=== PATIENT | male | born 1930 | race Caucasian/White ===

== ENCOUNTER 2016-09-11 10:29 | Outpatient (CLI) | payer MEDICARE | END 2016-09-11 10:30 | disposition home or self-care (01) | DX: I48.91 Unspecified atrial fibrillation (principal); N18.3 Chronic kidney disease, stage 3 (moderate); E11.65 Type 2 diabetes mellitus with hyperglycemia; Z79.01 Long term (current) use of anticoagulants ==

== ENCOUNTER 2016-10-25 10:40 | Outpatient (CLI) | payer MEDICARE | END 2016-10-25 10:41 | disposition home or self-care (01) | DX: I48.1 Persistent atrial fibrillation (principal); Z79.01 Long term (current) use of anticoagulants ==

== ENCOUNTER 2016-11-27 13:05 | Outpatient (CLI) | payer MEDICARE | END 2016-11-27 13:06 | disposition home or self-care (01) | DX: E11.65 Type 2 diabetes mellitus with hyperglycemia (principal); I48.1 Persistent atrial fibrillation; Z79.01 Long term (current) use of anticoagulants ==

== ENCOUNTER 2017-01-14 07:29 | Outpatient (CLI) | payer MEDICARE ==
[2017-01-14 11:10] LABS: ALBUMIN/GLOBULIN RATIO 1.6 (1.0-2.2); BILIRUBIN,TOTAL 0.9 mg/dL (0.2-1.0); BUN - BLOOD UREA NITROGEN 33 mg/dL (6-20); CALCIUM 8.8 mg/dL (8.5-10.3); CARBON DIOXIDE - CO2 30 mmol/L (21-32); CHLORIDE 105 mmol/L (101-111); CHOL/HDL RATIO 3.5 (<5.0); CHOLESTEROL 141 mg/dL; CREATININE 1.7 mg/dL (0.6-1.2); GFR - MDRD 38 (>89); GLUCOSE 141 mg/dL (70-100); HDL CHOLESTEROL 40 mg/dL; LDL CHOLESTEROL,DIRECT 78 mg/dL; SODIUM 141 mmol/L (135-145); TOTAL PROTEIN 6.7 g/dL (6.7-8.2); TRIGLYCERIDES 102 mg/dL; VLDL CHOLESTEROL 20 mg/dL
== END 2017-01-14 07:30 | disposition home or self-care (01) ==
LOC: LAB.F 07:29
PROVIDERS: ATTEND Internal Medicine Cardiovascular Disease
DX: I50.22 Chronic systolic (congestive) heart failure (principal); I10 Essential (primary) hypertension; I48.2 Chronic atrial fibrillation
CPT/HCPCS: 36415; 80053; 80061; 80162; 83880

== ENCOUNTER 2017-01-20 10:23 | Outpatient (CLI) | payer MEDICARE | END 2017-01-20 10:24 | disposition home or self-care (01) | LOC: LAB.F 10:23 | PROVIDERS: ATTEND Internal Medicine | DX: I48.1 Persistent atrial fibrillation (principal); Z79.01 Long term (current) use of anticoagulants | CPT/HCPCS: 85610 ==

== ENCOUNTER 2017-02-26 07:55 | Outpatient (CLI) | payer MEDICARE ==
[2017-02-26 12:06] LABS: CALCIUM 8.6 mg/dL (8.5-10.3); CREATININE 1.5 mg/dL (0.6-1.2); POTASSIUM 4.1 mmol/L (3.5-5.0)
[2017-02-26 12:31] LABS: HEMOGLOBIN A1C 0.87 g/dL
== END 2017-02-26 07:56 | disposition home or self-care (01) ==
LOC: LAB.F 07:55
PROVIDERS: ATTEND Internal Medicine
DX: Z00.00 Encounter for general adult medical examination without abnormal findings (principal); I50.23 Acute on chronic systolic (congestive) heart failure; N18.3 Chronic kidney disease, stage 3 (moderate); E78.5 Hyperlipidemia, unspecified; E11.65 Type 2 diabetes mellitus with hyperglycemia
CPT/HCPCS: 36415; 80048; 82043; 82570; 83036

== ENCOUNTER 2017-02-28 13:24 | Outpatient (CLI) | payer MEDICARE | END 2017-02-28 13:25 | disposition home or self-care (01) | LOC: LAB.F 13:24 | PROVIDERS: ATTEND Internal Medicine | DX: I48.1 Persistent atrial fibrillation (principal); Z79.01 Long term (current) use of anticoagulants | CPT/HCPCS: 85610 ==

== ENCOUNTER 2017-03-18 13:05 | Outpatient (CLI) | payer MEDICARE | END 2017-03-18 13:06 | disposition home or self-care (01) | LOC: SC 13:05 | PROVIDERS: ATTEND Internal Medicine Pulmonary Disease | DX: G47.31 Primary central sleep apnea (principal) | CPT/HCPCS: 99213; G0463; 99212 ==

== ENCOUNTER 2017-04-10 07:43 | Outpatient (CLI) | payer MEDICARE ==
[2017-04-10 12:58] LABS: HEMOGLOBIN A1C 0.89 g/dL
== END 2017-04-10 07:44 | disposition home or self-care (01) ==
LOC: LAB.F 07:43
PROVIDERS: ATTEND Internal Medicine
DX: E11.65 Type 2 diabetes mellitus with hyperglycemia (principal); I48.1 Persistent atrial fibrillation; Z79.01 Long term (current) use of anticoagulants
CPT/HCPCS: 36415; 83036; 85610

== ENCOUNTER 2017-05-22 10:28 | Outpatient (CLI) | payer MEDICARE ==
[2017-05-22 18:48] LABS: HEMOGLOBIN A1C 0.9 g/dL
== END 2017-05-22 10:29 | disposition home or self-care (01) ==
LOC: LAB.F 10:28
PROVIDERS: ATTEND Internal Medicine
DX: I48.1 Persistent atrial fibrillation (principal); Z79.01 Long term (current) use of anticoagulants; E11.65 Type 2 diabetes mellitus with hyperglycemia
CPT/HCPCS: 83036; 85610

== ENCOUNTER 2017-07-09 07:50 | Outpatient (CLI) | payer MEDICARE ==
[2017-07-09 11:03] LABS: INR 3.3 (0.8-1.2); PT - PROTHROMBIN TIME 35.2 secs (9.9-12.6)
[2017-07-09 11:21] LABS: HEMOGLOBIN A1C 0.86 g/dL
== END 2017-07-09 07:51 | disposition home or self-care (01) ==
LOC: LAB.F 07:50
PROVIDERS: ATTEND Internal Medicine
DX: I50.23 Acute on chronic systolic (congestive) heart failure (principal); I48.91 Unspecified atrial fibrillation; G47.37 Central sleep apnea in conditions classified elsewhere; N18.3 Chronic kidney disease, stage 3 (moderate); E78.5 Hyperlipidemia, unspecified; I06.0 Rheumatic aortic stenosis; N25.81 Secondary hyperparathyroidism of renal origin; E11.65 Type 2 diabetes mellitus with hyperglycemia; I12.9 Hypertensive chronic kidney disease with stage 1 through stage 4 chronic kidney disease, or unspecified chronic kidney disease
CPT/HCPCS: 36415; 83036; 85610

== ENCOUNTER 2017-08-06 07:46 | Outpatient (CLI) | payer MEDICARE ==
[2017-08-06 13:49] LABS: ALBUMIN/GLOBULIN RATIO 1.3 (1.0-2.2); BILIRUBIN,TOTAL 0.7 mg/dL (0.2-1.0); BUN - BLOOD UREA NITROGEN 29 mg/dL (6-20); CALCIUM 8.7 mg/dL (8.5-10.3); CARBON DIOXIDE - CO2 30 mmol/L (21-32); CHLORIDE 101 mmol/L (101-111); CHOL/HDL RATIO 3.6 (<5.0); CHOLESTEROL 142 mg/dL; CREATININE 1.6 mg/dL (0.6-1.2); GFR - MDRD 41 (>89); GLUCOSE 126 mg/dL (70-100); HDL CHOLESTEROL 39 mg/dL; LDL CHOLESTEROL,DIRECT 89 mg/dL; LDL/HDL RATIO 2.2 (<3.6); POTASSIUM 3.9 mmol/L (3.5-5.0); SODIUM 140 mmol/L (135-145); TOTAL PROTEIN 6.9 g/dL (6.7-8.2); TRIGLYCERIDES 90 mg/dL; VLDL CHOLESTEROL 18 mg/dL
== END 2017-08-06 07:47 | disposition home or self-care (01) ==
LOC: LAB.F 07:46
PROVIDERS: ATTEND Internal Medicine Cardiovascular Disease
DX: I42.8 Other cardiomyopathies (principal); I35.9 Nonrheumatic aortic valve disorder, unspecified; E78.5 Hyperlipidemia, unspecified
CPT/HCPCS: 36415; 80053; 80061; 82550

== ENCOUNTER 2017-08-27 08:23 | Outpatient (CLI) | payer MEDICARE ==
[2017-08-27 12:06] LABS: HEMOGLOBIN A1C 0.76 g/dL; HEMOGLOBIN A1C % 6.8 % (4.6-6.2)
== END 2017-08-27 08:24 | disposition home or self-care (01) ==
LOC: LAB.F 08:23
PROVIDERS: ATTEND Internal Medicine
DX: I50.23 Acute on chronic systolic (congestive) heart failure (principal); I48.91 Unspecified atrial fibrillation; G47.37 Central sleep apnea in conditions classified elsewhere; N18.3 Chronic kidney disease, stage 3 (moderate); I06.0 Rheumatic aortic stenosis; N25.81 Secondary hyperparathyroidism of renal origin; I12.9 Hypertensive chronic kidney disease with stage 1 through stage 4 chronic kidney disease, or unspecified chronic kidney disease; I48.1 Persistent atrial fibrillation; Z79.01 Long term (current) use of anticoagulants
CPT/HCPCS: 36415; 83036; 85610

== ENCOUNTER 2017-09-09 19:02 | Outpatient (CLI) | payer MEDICARE | END 2017-09-09 19:03 | disposition EMS.NT | LOC: EMS 19:02 | PROVIDERS: ATTEND Surgery | DX: R05 Cough (principal) ==

== ENCOUNTER 2017-09-09 20:19 | Emergency (ER) | payer MEDICARE ==
--- NOTE | 2017-09-09 21:48 | XRAY Report ---
EXAM: CHEST RADIOGRAPHY EXAM DATE: 09/09/2017 09:20 PM. CLINICAL HISTORY: Persistent cough. COMPARISON: 09/09/2014. TECHNIQUE: 2 views. FINDINGS: Lungs/Pleura: Stable minor left base scarring, otherwise no focal opacities evident. No pleural effus ion. No pneumothorax. Normal volumes. Mediastinum: Normal heart size. Prior cardiac valve replacement. Stable dual lead left ICD. Other: No compression fractures. IMPRESSION: Stable left base scarring. No acute pulmonary abnormality. [facility] Referring Provider Line: [phone] SITE ID: [id number]
--- NOTE | 2017-09-09 21:48 | XRAY Preliminary Report ---
Exam: XR CHEST 2 VIEW X-RAY IMPRESSION: Stable left base scarring. No acute pulmonary abnormality. [facility] SITE ID: [id number]
[2017-09-09] MEDS ORDERED: BENZONATATE 100 MG CAPSULE PO STA (21:58)
--- NOTE | 2017-09-09 22:01 | ED Physician Documentation ---
PD HPI URI - Stated complaint Stated Complaint: COUGH - Chief complaint Chief Complaint: Resp - History obtained from History obtained from: Patient - History of Present Illness Timing - onset: Yesterday Timing details: Gradual onset, Still present Associated symptoms: No: Fever, Chills Similar symptoms before: Has not had sx before Recently seen: Not recently seen - Additional information Additional information: Patient is an 87 year old male presenting to the emergency department for cough. Patient states that he has had a dry cough for the last few days. patient denies fevers, chills, wheezing, chest pain, nausea or vomiting. Patient states that he blood pressure medication did get recently changed to lisinopril. Review of Systems Constitutional: denies: Fever, Chills Eyes: reports: Reviewed and negative Ears: reports: Reviewed and negative Nose: denies: Rhinorrhea / runny nose, Congestion Cardiac: denies: Chest pain / pressure, Palpitations Respiratory: reports: Cough. denies: Dyspnea, Hemoptysis, Wheezing GI: denies: Nausea, Vomiting : reports: Reviewed and negative Skin: denies: Rash, Lesions Musculoskeletal: reports: Reviewed and negative Neurologic: denies: Generalized weakness, Focal weakness Immunocompromised: denies: Immunocompromised PD PAST MEDICAL HISTORY - Past Medical History Cardiovascular: Congestive heart failure, Hypertension, Coronary artery disease , Atrial fibrillation, Valve disorder Respiratory: Sleep apnea, CPAP use Neuro: None Endocrine/Autoimmune: Type 2 diabetes, Other GI: None : Renal insuffiency HEENT: None Psych: Depression Musculoskeletal: Osteoarthritis Derm: None - Past Surgical History Past Surgical History: Yes General: Appendectomy Cardiovascular: Valve replacement, Pacemaker, AICD HEENT: Tonsil/Adenoidectomy - Present Medications Home Medications: Ambulatory Orders Medication Instructions Recorded Confirmed Doxazosin [Cardura] 2 mg PO DAILY 04/30/13 05/16/16 Metoprolol Succinate 200 mg PO DAILY@0900 04/30/13 05/16/16 Pravastatin Sodium [Pravachol] 80 mg PO QPM 04/30/13 05/16/16 Warfarin Sodium [Coumadin] 5 mg PO .SUTUWETHSA@1800 04/30/13 05/16/16 Allopurinol 100 mg PO DAILY 02/21/14 05/16/16 Digoxin [Digox] 125 mcg PO DAILY 02/21/14 05/16/16 Lisinopril 40 mg PO DAILY 08/09/15 05/16/16 Cholecalciferol (Vitamin D3) 1,000 unit PO DAILY 12/22/15 05/16/16 [Vitamin D3] Furosemide 20 mg PO BID 12/22/15 05/16/16 Metoprolol Succinate 100 mg PO QPM 12/22/15 05/16/16 Warfarin Sodium 2.5 mg PO .MOFR@1800 12/22/15 05/16/16 Insulin NPH Human Isophane 14 unit SQ BID 01/05/16 05/16/16 [Humulin N Kwikpen] Benzonatate [Tessalon] 100 mg PO TID #14 capsule 09/09/17 - Allergies Allergies/Adverse Reactions: Allergies Allergy/AdvReac Type Severity Reaction Status Date / Time morphine Allergy Unknown Unknown Verified 12/22/15 10:11 - Social History Does the pt smoke?: No Smoking Status: Never smoker Does the pt drink ETOH?: No Does the pt have substance abuse?: No - Immunizations Immunizations are current?: Yes - POLST Patient has POLST: Yes PD ED PE NORMAL - Vitals Vital signs reviewed: Yes - General General: Alert and oriented X 3, No acute distress - HEENT HEENT: Atraumatic, PERRL - Neck Neck: Supple, no meningeal sign - Cardiac Cardiac: RRR, No murmur - Respiratory Respiratory: No respiratory distress, Clear bilaterally - Abdomen Abdomen: Soft, Non tender, Non distended - Derm Derm: Normal color, Warm and dry, No rash - Extremities Extremities: No deformity, No tenderness to palpate - Neuro Neuro: Alert and oriented X 3, No motor deficit, No sensory deficit, Normal speech - Psych Psych: Normal mood Results - Vitals Vitals: Vital Signs - 24 hr 09/09/17 09/09/17 20:32 22:06 Temperature 36.1 C L 36.5 C Heart Rate 80 76 Respiratory 18 18 Rate Blood Pressure 134/57 H 126/70 O2 Saturation 97 97 Oxygen O2 Source [With Activity] Room air O2 Source [Without Activity] Room air O2 Source Room air - Labs Labs: Laboratory Tests 09/09/17 21:06 Influenza A (Rapid) Negative Influenza B (Rapid) Negative Influenza Types A,B Ag - - Rads (name of study) chest x-ray Radiology: Final report received (no acute abnormality) PD MEDICAL DECISION MAKING - ED course Complexity details: reviewed old records, reviewed results, re-evaluated patient , considered differential, d/w patient ED course: Patient was seen and examined at bedside. Patietn was well appearing and no acute distress. chest x-ray and flu swab was performed and within normal limits. Patient's symptoms were likely secondary to lisinopril. Patient stated that he would be able to follow up with his doctor tomorrow. Patient required no further work up and was stable for discharge with outpatient follow up. Departure - Departure Disposition: Home, Self Care Clinical Impression: Cough due to RITCHIE inhibitor Condition: Good Instructions: Inhibitors RITCHIE Follow-Up: Evangelist Carrillo MD [Primary Care Provider] - Tomorrow Prescriptions: Benzonatate [Tessalon] 100 mg PO TID #14 capsule Comments: Your diagnostics today were within normal limits. There is no sign of influenza or pneumonia. Your symptoms are likely secondary to your blood pressure medication, lisinopril. You should call your doctor tomorrow to schedule a follow up appointment. You may return to the emergency department at any time for new, worsening or uncontrollable symptoms. Discharge Date/Time: 09/09/17 22:08
[2017-09-09 22:07] VITALS: BP 126/70
== END 2017-09-09 22:08 | disposition home or self-care (01) ==
LOC: ED 20:19
DX: R05 Cough (principal); T46.4X5A Adverse effect of angiotensin-converting-enzyme inhibitors, initial encounter; I11.0 Hypertensive heart disease with heart failure; I50.9 Heart failure, unspecified; I25.10 Atherosclerotic heart disease of native coronary artery without angina pectoris; E11.9 Type 2 diabetes mellitus without complications; Z79.4 Long term (current) use of insulin; Z95.810 Presence of automatic (implantable) cardiac defibrillator; Z95.2 Presence of prosthetic heart valve; Z79.01 Long term (current) use of anticoagulants
CPT/HCPCS: 71046; 87275; 87276; 99283; 99284; A9270

== ENCOUNTER 2017-09-15 10:00 | Outpatient (CLI) | payer MEDICARE | END 2017-09-15 10:01 | disposition critical access hospital (66) | LOC: EMS 10:00 | PROVIDERS: ATTEND Surgery | DX: R31.9 Hematuria, unspecified (principal); R30.9 Painful micturition, unspecified | CPT/HCPCS: A0425; A0429 ==

== ENCOUNTER 2017-09-15 10:30 | Emergency (ER) | payer MEDICARE ==
--- NOTE | 2017-09-15 10:45 | ED Physician Documentation ---
History of Present Illness - Stated complaint Stated Complaint: HEMATURIA - Chief complaint Chief Complaint: General - Additonal information Additional information: hx from pt 87 male 3 days of dysuria now hematuria and L flank pain no pain no fever chills no NV Review of Systems Constitutional: denies: Fever, Chills Cardiac: denies: Chest pain / pressure Respiratory: denies: Dyspnea, Cough GI: denies: Abdominal Pain, Nausea, Vomiting : reports: Dysuria, Hematuria Musculoskeletal: reports: Back pain Endocrine: denies: Easy bruising / bleeding Immunocompromised: denies: Immunocompromised PD PAST MEDICAL HISTORY - Past Medical History Cardiovascular: Congestive heart failure, Hypertension, Coronary artery disease , Atrial fibrillation, Valve disorder Respiratory: Sleep apnea, CPAP use Neuro: None Endocrine/Autoimmune: Type 2 diabetes, Other GI: None : Renal insuffiency HEENT: None Psych: Depression Musculoskeletal: Osteoarthritis Derm: None - Past Surgical History Past Surgical History: Yes General: Appendectomy Cardiovascular: Valve replacement, Pacemaker, AICD HEENT: Tonsil/Adenoidectomy - Present Medications Home Medications: Ambulatory Orders Medication Instructions Recorded Confirmed Doxazosin [Cardura] 2 mg PO DAILY 04/30/13 09/15/17 Metoprolol Succinate 0 mg PO DAILY@0900 04/30/13 09/15/17 Pravastatin Sodium [Pravachol] 80 mg PO QPM 04/30/13 09/15/17 Warfarin Sodium [Coumadin] 5 mg PO .SUTUTHSA@1800 04/30/13 09/15/17 Allopurinol 100 mg PO DAILY 02/21/14 09/15/17 Digoxin [Digox] 125 mcg PO DAILY 02/21/14 09/15/17 Cholecalciferol (Vitamin D3) 1,000 unit PO DAILY 12/22/15 09/15/17 [Vitamin D3] Furosemide 20 mg PO BID 12/22/15 09/15/17 Metoprolol Succinate 0 mg PO QPM 12/22/15 09/15/17 Warfarin Sodium 2.5 mg PO .MOALOKFR@1800 12/22/15 09/15/17 Insulin NPH Human Isophane 22 unit SQ BID 01/05/16 09/15/17 [Humulin N Kwikpen] Lisinopril/Hydrochlorothiazide 0 mg DAILY 09/15/17 09/15/17 [Lisinopril-Hctz 10-12.5 mg Tab] - Allergies Allergies/Adverse Reactions: Allergies Allergy/AdvReac Type Severity Reaction Status Date / Time morphine Allergy Unknown Unknown Verified 09/15/17 13:11 - Social History Does the pt smoke?: No Smoking Status: Never smoker Does the pt drink ETOH?: No Does the pt have substance abuse?: No - Immunizations Immunizations are current?: Yes - POLST Patient has POLST: Yes PD ED PE NORMAL - Vitals Vital signs reviewed: Yes - Neck Neck: Supple, no meningeal sign - Cardiac Cardiac: RRR - Respiratory Respiratory: No respiratory distress, Clear bilaterally - Abdomen Abdomen: Soft, Non tender - Back Back: No CVA TTP - Derm Derm: Normal color Results - Vitals Vitals: Vital Signs - 24 hr 09/15/17 09/15/17 09/15/17 10:34 12:17 12:58 Temperature 36.2 C L 36.7 C Heart Rate 70 65 64 Respiratory 20 16 16 Rate Blood Pressure 118/72 130/66 146/67 H O2 Saturation 95 94 100 Oxygen O2 Source [] Room air O2 Source [] Room air O2 Source Room air - Labs Labs: Laboratory Tests 09/15/17 09/15/17 09/15/17 10:47 10:47 11:22 WBC 8.9 RBC 4.65 L Hgb 14.4 Hct 43.5 MCV 93.4 MCH 31.0 MCHC 33.1 RDW 13.7 Plt Count 168 MPV 7.9 Neut # 7.1 H Lymph # 1.1 L [place] # 0.6 Eos # 0.0 Baso # 0.2 H Absolute Nucleated RBC 0.00 Nucleated RBC % 0.0 Whole Blood INR Sodium 133 L Potassium 3.4 L Chloride 92 L Carbon Dioxide 31 Anion Gap 10.0 BUN 48 H Creatinine 2.0 H Estimated GFR (MDRD) 32 L Glucose 124 H Calcium 8.5 Urine Color RED/BLOODY Urine Clarity BLOODY Urine pH 6.5 Ur Specific [place] 1.020 Urine Protein 30 H Urine Glucose (UA) NEGATIVE Urine Ketones NEGATIVE Urine Occult Blood LARGE H Urine Nitrite NEGATIVE Urine Bilirubin NEGATIVE Urine Urobilinogen 0.2 (NORMAL) Ur Leukocyte Esterase TRACE H Urine RBC TNTC H Urine WBC 11-25 H Ur Squamous Epith Cells FEW Squamous Urine Bacteria Few Ur Microscopic Review INDICATED Urine Culture Comments INDICATED 09/15/17 13:05 WBC RBC Hgb Hct MCV MCH MCHC RDW Plt Count MPV Neut # Lymph # [place] # Eos # Baso # Absolute Nucleated RBC Nucleated RBC % Whole Blood INR 3.8 H Sodium Potassium Chloride Carbon Dioxide Anion Gap BUN Creatinine Estimated GFR (MDRD) Glucose Calcium Urine Color Urine Clarity Urine pH Ur Specific [place] Urine Protein Urine Glucose (UA) Urine Ketones Urine Occult Blood Urine Nitrite Urine Bilirubin Urine Urobilinogen Ur Leukocyte Esterase Urine RBC Urine WBC Ur Squamous Epith Cells Urine Bacteria Ur Microscopic Review Urine Culture Comments - Rads (name of study) CT AP Radiology: See rad report (no stones, renal cysts, thickened bladder wall could be cystitis) PD MEDICAL DECISION MAKING - ED course ED course: UTI with gross hemeturia CT no stones but thickened bladder wall no clots obstructing will dc with ab and urology fup for scope and precautions that if urine clots he might need [place] renal insuff not new - slightly worse than Dec pt on coumadin for mechanical valve - cipro would be ideal for elderly male with UTI but will inc INR Departure - Departure Disposition: 01 Home, Self Care Clinical Impression: Renal insufficiency UTI (urinary tract infection) Qualifiers: Urinary tract infection type: site unspecified Hematuria presence: with hematuria Qualified Code(s): N39.0 - Urinary tract infection, site not specified Hematuria Qualifiers: Hematuria type: gross Qualified Code(s): R31.0 - Gross hematuria Condition: Good Instructions: ED Hematuria, ED UTI Cystitis Male Follow-Up: [facility] [Provider Group] (call to schedule with urology) Evangelist Carrillo MD [Primary Care Provider] - Comments: The CT scan did not show a kidney stone Also no kidney tumor was seen - though you have renal cysts. The urine showed a lot of blood - and likely an infection as well. Your blood count is fine. You have renal insufficiency but that is not new. So I think you can go home on antibiotics. But it is very very important that you follow up with urology to get a scope of your bladder to be sure there is no bladder tumor or abnormality causing the bleeding. Right now you are able to pee - but sometimes when there is blood in the urine, clots can form that prevent you from being able to urinate - if you cannot urinate and your bladder feels full, please come back to the ER so we can place a catheter Also please have your INR checked more frequently while on the antibiotic - I picked this antibiotic specifically because it is less likely to affect your coumadin but it still could cause an elevated INR and bleeding problems
[2017-09-15 10:52] LABS: BASOPHILS # (AUTO) 0.2 10^3/uL (0.0-0.1); BASOPHILS % (AUTO) 1.8 %; EOSINOPHILS % (AUTO) 0.4 %; HGB - HEMOGLOBIN 14.4 g/dL (14.0-18.0); LYMPHOCYTES # (AUTO) 1.1 10^3/uL (1.5-3.5); LYMPHOCYTES % (AUTO) 12.6 %; MEAN CORPUSCULAR HGB CONC 33.1 g/dL (32.0-36.0); MEAN CORPUSCULAR VOLUME 93.4 fL (80.0-94.0); MEAN PLATELET VOLUME 7.9 fL (7.4-11.4); MONOCYTES # (AUTO) 0.6 10^3/uL (0.0-1.0); MONOCYTES % (AUTO) 6.3 %; NEUTROPHILS # (AUTO) 7.1 10^3/uL (1.5-6.6); NEUTROPHILS % (AUTO) 78.9 %; PLT - PLATELET COUNT 168 10^3/uL (130-450); RED BLOOD COUNT 4.65 10^6/uL (4.70-6.10); RED CELL DISTRIBUTION WIDTH 13.7 % (12.0-15.0); WHITE BLOOD COUNT 8.9 x10^3/uL (4.8-10.8)
[2017-09-15 10:59] LABS: CALCIUM 8.5 mg/dL (8.5-10.3)
[2017-09-15 11:37] LABS: BILIRUBIN,URINE NEGATIVE (NEGATIVE); GLUCOSE, URINE (UA) NEGATIVE (NEGATIVE); KETONES,URINE (UA) NEGATIVE (NEGATIVE); LEUKOCYTE ESTERASE, URINE TRACE (NEGATIVE); NITRITE,URINE NEGATIVE (NEGATIVE); OCCULT BLOOD,URINE LARGE (NEGATIVE); PH,URINE 6.5 PH (5.0-7.5); PROTEIN,URINE 30 mg/dL (NEGATIVE); UROBILINOGEN,URINE 0.2 (NORMAL) E.U./dL (NORMAL)
--- NOTE | 2017-09-15 11:37 | CT Report ---
EXAM: CT ABDOMEN AND PELVIS (CT KUB) EXAM DATE: 09/15/2017 11:13 AM. CLINICAL HISTORY: L flank pain hematuria. COMPARISONS: None. TECHNIQUE: Routine axial helical CT imaging was performed through the abdomen and pelvis without IV c ontrast. Reconstructions: Coronal and sagittal. In accordance with CT protocol optimization, one or more of the following dose reduction techniques w ere utilized for this exam: automated exposure control, adjustment of mA and/or KV based on patient s ize, or use of iterative reconstructive technique. FINDINGS: Lung Bases: Cardia megaly. Pacemaker noted. Prior cardiac valve replacement. Right Kidney/Ureter: No stones, hydronephrosis, or hydroureter. No perinephric fat stranding. Multipl e cysts with water attenuation. Left Kidney/Ureter: No stones, hydronephrosis, or hydroureter. No perinephric fat stranding. Multiple cysts with water attenuation. Other Solid Organs: Noncontrast images of the solid organs are grossly unremarkable. Gallbladder/Bile Ducts: Gallstone. No gallbladder wall thickening or biliary ductal dilatation. Peritoneal Cavity: Fat-containing umbilical hernia. No inflammation or associated bowel. Diverticulos is. No focal inflammation evident. Pelvic Organs: Bladder is nearly collapsed with mild diffuse wall prominence. Penile implant noted wi th reservoir along anterior aspect of bladder dome. Vasculature: Atherosclerotic aortic calcifications. No aneurysm. Other: Prominent multilevel lumbar spine degenerative changes. Prior sternotomy. IMPRESSION: 1. No urinary tract stones or obstruction. 2. Bilateral renal cysts with water attenuation. 3. Urinary bladder is nearly collapsed with mild diffuse wall prominence. Recommend clinical correlat ion to exclude cystitis. 4. No definite source for hematuria evident on noncontrast imaging. Consider CT IVP if clinically war ranted. 5. Diverticulosis without diverticulitis. 6. Fat-containing umbilical and bilateral inguinal hernias. 7. Cholelithiasis. No CT evidence for cholecystitis. [facility] Referring Provider Line: [phone] SITE ID: [id number]
[2017-09-15 11:38] LABS: CLARITY,URINE BLOODY (CLEAR)
[2017-09-15 11:39] LABS: BACTERIA,URINE Few /HPF (None Seen); RBC,URINE TNTC /HPF (0-5); SQUAMOUS EPITHELIAL CELL,UR FEW Squamous (<= Few)
[2017-09-15 14:05] VITALS: BP 117/63
== END 2017-09-15 14:16 | disposition home or self-care (01) ==
LOC: EDUNIT# → ED 10:30
DX: N30.01 Acute cystitis with hematuria (principal); N28.9 Disorder of kidney and ureter, unspecified; I11.0 Hypertensive heart disease with heart failure; I50.9 Heart failure, unspecified; I25.10 Atherosclerotic heart disease of native coronary artery without angina pectoris; I48.91 Unspecified atrial fibrillation; Z79.01 Long term (current) use of anticoagulants; E11.9 Type 2 diabetes mellitus without complications; Z79.4 Long term (current) use of insulin; G47.30 Sleep apnea, unspecified; M19.90 Unspecified osteoarthritis, unspecified site; I38 Endocarditis, valve unspecified
CPT/HCPCS: 36415; 74176; 80048; 81001; 81003; 85025; 85610; 87086; 99283; 99284

== ENCOUNTER 2017-09-18 08:06 | Outpatient (CLI) | payer MEDICARE | END 2017-09-18 08:07 | disposition home or self-care (01) | LOC: LAB.F 08:06 | PROVIDERS: ATTEND Internal Medicine | DX: I48.1 Persistent atrial fibrillation (principal); Z79.01 Long term (current) use of anticoagulants | CPT/HCPCS: 85610 ==

== ENCOUNTER 2017-09-24 09:34 | Outpatient (CLI) | payer MEDICARE ==
[2017-09-24 17:36] LABS: BILIRUBIN,URINE NEGATIVE (NEGATIVE); GLUCOSE, URINE (UA) NEGATIVE (NEGATIVE); KETONES,URINE (UA) NEGATIVE (NEGATIVE); LEUKOCYTE ESTERASE, URINE SMALL (NEGATIVE); NITRITE,URINE NEGATIVE (NEGATIVE); OCCULT BLOOD,URINE SMALL (NEGATIVE); PROTEIN,URINE NEGATIVE (NEGATIVE); UROBILINOGEN,URINE 0.2 (NORMAL) E.U./dL (NORMAL)
[2017-09-24 17:45] LABS: BACTERIA,URINE Rare /HPF (None Seen); CLARITY,URINE CLEAR (CLEAR); RBC,URINE 0-5 /HPF (0-5); SQUAMOUS EPITHELIAL CELL,UR RARE Squamous (<= Few)
[2017-09-24 18:09] LABS: CALCIUM 8.2 mg/dL (8.5-10.3); CREATININE 2.1 mg/dL (0.6-1.2)
== END 2017-09-24 09:35 | disposition home or self-care (01) ==
LOC: LAB.F 09:34
PROVIDERS: ATTEND Internal Medicine
DX: I50.23 Acute on chronic systolic (congestive) heart failure (principal); I48.91 Unspecified atrial fibrillation; G47.37 Central sleep apnea in conditions classified elsewhere; N18.3 Chronic kidney disease, stage 3 (moderate); E78.5 Hyperlipidemia, unspecified; I06.0 Rheumatic aortic stenosis; N25.81 Secondary hyperparathyroidism of renal origin; J32.9 Chronic sinusitis, unspecified; E11.65 Type 2 diabetes mellitus with hyperglycemia; N39.0 Urinary tract infection, site not specified; I12.9 Hypertensive chronic kidney disease with stage 1 through stage 4 chronic kidney disease, or unspecified chronic kidney disease
CPT/HCPCS: 36415; 80048; 81001; 87086

== ENCOUNTER 2017-09-29 08:18 | Outpatient (CLI) | payer MEDICARE | END 2017-09-29 08:19 | disposition home or self-care (01) | LOC: LAB.F 08:18 | PROVIDERS: ATTEND Internal Medicine | DX: I48.91 Unspecified atrial fibrillation (principal); Z79.01 Long term (current) use of anticoagulants | CPT/HCPCS: 85610 ==

== ENCOUNTER 2017-10-31 07:43 | Outpatient (CLI) | payer MEDICARE ==
[2017-10-31 10:21] LABS: BILIRUBIN,URINE NEGATIVE (NEGATIVE); GLUCOSE, URINE (UA) NEGATIVE (NEGATIVE); KETONES,URINE (UA) NEGATIVE (NEGATIVE); LEUKOCYTE ESTERASE, URINE NEGATIVE (NEGATIVE); NITRITE,URINE NEGATIVE (NEGATIVE); OCCULT BLOOD,URINE TRACE-LYSE (NEGATIVE); PROTEIN,URINE NEGATIVE (NEGATIVE); UROBILINOGEN,URINE 0.2 (NORMAL) E.U./dL (NORMAL)
[2017-10-31 10:28] LABS: CLARITY,URINE CLEAR (CLEAR)
[2017-10-31 10:34] LABS: CALCIUM 8.5 mg/dL (8.5-10.3); CREATININE 1.7 mg/dL (0.6-1.2)
[2017-10-31 10:45] LABS: HEMOGLOBIN A1C 0.84 g/dL; HEMOGLOBIN A1C % 7.3 % (4.6-6.2)
== END 2017-10-31 07:44 | disposition home or self-care (01) ==
LOC: LAB.F 07:43
PROVIDERS: ATTEND Internal Medicine
DX: I50.23 Acute on chronic systolic (congestive) heart failure (principal); I48.91 Unspecified atrial fibrillation; G47.37 Central sleep apnea in conditions classified elsewhere; N18.3 Chronic kidney disease, stage 3 (moderate); E78.5 Hyperlipidemia, unspecified; I06.0 Rheumatic aortic stenosis; N25.81 Secondary hyperparathyroidism of renal origin; E11.65 Type 2 diabetes mellitus with hyperglycemia; I12.9 Hypertensive chronic kidney disease with stage 1 through stage 4 chronic kidney disease, or unspecified chronic kidney disease; N39.0 Urinary tract infection, site not specified; R31.9 Hematuria, unspecified
CPT/HCPCS: 36415; 80048; 81001; 81003; 83036; 87086

== ENCOUNTER 2017-11-05 09:24 | Outpatient (CLI) | payer MEDICARE | END 2017-11-05 09:25 | disposition home or self-care (01) | LOC: LAB.F 09:24 | PROVIDERS: ATTEND Internal Medicine | DX: I48.1 Persistent atrial fibrillation (principal); Z79.01 Long term (current) use of anticoagulants | CPT/HCPCS: 85610 ==

== ENCOUNTER 2017-11-14 18:40 | Outpatient (CLI) | payer MEDICARE | END 2017-11-14 18:41 | disposition critical access hospital (66) | LOC: EMS 18:40 | PROVIDERS: ATTEND Surgery | DX: R55 Syncope and collapse (principal) | CPT/HCPCS: A0425; A0427 ==

== ENCOUNTER 2017-11-14 19:08 | Emergency (ER) | payer MEDICARE ==
--- NOTE | 2017-11-14 20:16 | ED Physician Documentation ---
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 asymptomatic on ED arrival Review of Systems Constitutional: reports: Reviewed and negative Eyes: reports: Reviewed and negative Cardiac: reports: Reviewed and negative Respiratory: reports: Reviewed and negative GI: reports: Reviewed and negative : denies: Dysuria, Frequency Musculoskeletal: reports: Reviewed and negative Neurologic: reports: Syncope, LOC. denies: Generalized weakness, Focal weakness , Numbness, Seizure, Confused, Headache PD PAST MEDICAL HISTORY - Past Medical History Cardiovascular: Congestive heart failure, Hypertension, Coronary artery disease , Atrial fibrillation, Valve disorder Respiratory: Sleep apnea, CPAP use Neuro: None Endocrine/Autoimmune: Type 2 diabetes, Other GI: None : Renal insuffiency HEENT: None Psych: Depression Musculoskeletal: Osteoarthritis Derm: None - Past Surgical History Past Surgical History: Yes General: Appendectomy Cardiovascular: Valve replacement, Pacemaker, AICD HEENT: Tonsil/Adenoidectomy - Present Medications Home Medications: Ambulatory Orders Medication Instructions Recorded Confirmed Doxazosin [Cardura] 2 mg PO DAILY 04/30/13 11/14/17 Pravastatin Sodium [Pravachol] 80 mg PO QPM 04/30/13 11/14/17 Warfarin Sodium [Coumadin] 5 mg PO .DONATO@1800 04/30/13 11/14/17 Allopurinol 100 mg PO DAILY 02/21/14 11/14/17 Digoxin [Digox] 125 mcg PO DAILY 02/21/14 11/14/17 Cholecalciferol (Vitamin D3) 1,000 unit PO DAILY 12/22/15 11/14/17 [Vitamin D3] Furosemide 20 mg PO BID 12/22/15 11/14/17 Metoprolol Succinate 100 mg PO QPM 12/22/15 11/14/17 Warfarin Sodium 2.5 mg PO .MARCI@1800 12/22/15 11/14/17 Insulin NPH Human Isophane 22 unit SQ BID 01/05/16 11/14/17 [Humulin N Temitope] Lisinopril/Hydrochlorothiazide 12.5 - 20 mg PO BID 09/15/17 11/14/17 [Lisinopril-Hctz 10-12.5 mg Tab] - Allergies Allergies/Adverse Reactions: Allergies Allergy/AdvReac Type Severity Reaction Status Date / Time morphine Allergy Unknown Unknown Verified 11/14/17 19:32 - Social History Does the pt smoke?: No Smoking Status: Never smoker Does the pt drink ETOH?: No Does the pt have substance abuse?: No - Immunizations Immunizations are current?: Yes - POLST Patient has POLST: Yes PD ED PE NORMAL - Vitals Vital signs reviewed: Yes - General General: Alert and oriented X 3, No acute distress, Well developed/nourished - HEENT HEENT: Atraumatic, PERRL, EOMI, Moist mucous membranes - Neck Neck: Supple, no meningeal sign - Cardiac Cardiac: RRR - Respiratory Respiratory: No respiratory distress, Clear bilaterally - Abdomen Abdomen: Soft, Non tender - Back Back: No CVA TTP, No spinal TTP - Extremities Extremities: No edema - Neuro Neuro: Alert and oriented X 3, 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 fib but mostly paced rhythm) [place]: RAD - Labs Labs: Laboratory Tests 11/14/17 11/14/17 11/14/17 19:40 19:40 19:40 WBC 9.8 RBC 4.42 L Hgb 13.6 L Hct 41.0 L MCV 92.7 MCH 30.7 MCHC 33.1 RDW 14.9 Plt Count 163 MPV 7.8 Neut # 7.7 H Lymph # 1.2 L [place] # 0.6 Eos # 0.1 Baso # 0.1 Absolute Nucleated RBC 0.00 Nucleated RBC % 0.0 PT 30.4 H INR 2.8 H APTT 33.4 H Sodium 136 Potassium 4.0 Chloride 97 L Carbon Dioxide 28 Anion Gap 11.0 BUN 48 H Creatinine 2.2 H Estimated GFR (MDRD) 28 L Glucose 154 H Calcium 8.8 Total Bilirubin 0.9 AST 20 ALT 20 Alkaline Phosphatase 50 Troponin I Total Protein 7.2 Albumin 4.0 Globulin 3.2 Albumin/Globulin Ratio 1.3 Lipase 20 L 11/14/17 19:40 WBC RBC Hgb Hct MCV MCH MCHC RDW Plt Count MPV Neut # Lymph # [place] # Eos # Baso # Absolute Nucleated RBC Nucleated RBC % PT INR APTT Sodium Potassium Chloride Carbon Dioxide Anion Gap BUN Creatinine Estimated GFR (MDRD) Glucose Calcium Total Bilirubin AST ALT Alkaline Phosphatase Troponin I < 0.04 Total Protein Albumin Globulin Albumin/Globulin Ratio Lipase - Rads (name of study) chest xray Radiology: Prelim report reviewed, See rad report PD MEDICAL DECISION MAKING - ED course Complexity details: reviewed results, re-evaluated patient, considered differential, d/w patient, d/w family Departure - Departure Disposition: 01 Home, Self Care Clinical Impression: Syncope Condition: Good Instructions: ED Fainting Unkn Cause Follow-Up: Evangelist Carrillo MD [Primary Care Provider] - Discharge Date/Time: 11/14/17 23:05
[2017-11-14 20:48] LABS: BASOPHILS # (AUTO) 0.1 10^3/uL (0.0-0.1); BASOPHILS % (AUTO) 1.5 %; EOSINOPHILS # (AUTO) 0.1 10^3/uL (0.0-0.7); EOSINOPHILS % (AUTO) 0.7 %; HGB - HEMOGLOBIN 13.6 g/dL (14.0-18.0); LYMPHOCYTES # (AUTO) 1.2 10^3/uL (1.5-3.5); LYMPHOCYTES % (AUTO) 12.1 %; MEAN CORPUSCULAR HEMOGLOBIN 30.7 pg (27.0-31.0); MEAN CORPUSCULAR HGB CONC 33.1 g/dL (32.0-36.0); MEAN CORPUSCULAR VOLUME 92.7 fL (80.0-94.0); MEAN PLATELET VOLUME 7.8 fL (7.4-11.4); MONOCYTES # (AUTO) 0.6 10^3/uL (0.0-1.0); MONOCYTES % (AUTO) 6.4 %; NEUTROPHILS # (AUTO) 7.7 10^3/uL (1.5-6.6); NEUTROPHILS % (AUTO) 79.3 %; PLT - PLATELET COUNT 163 10^3/uL (130-450); RED BLOOD COUNT 4.42 10^6/uL (4.70-6.10); RED CELL DISTRIBUTION WIDTH 14.9 % (12.0-15.0); WHITE BLOOD COUNT 9.8 x10^3/uL (4.8-10.8)
[2017-11-14 21:01] LABS: ALBUMIN/GLOBULIN RATIO 1.3 (1.0-2.2); BILIRUBIN,TOTAL 0.9 mg/dL (0.2-1.0); CALCIUM 8.8 mg/dL (8.5-10.3); CREATININE 2.2 mg/dL (0.6-1.2); TOTAL PROTEIN 7.2 g/dL (6.7-8.2)
[2017-11-14 21:13] LABS: INR 2.8 (0.8-1.2); PT - PROTHROMBIN TIME 30.4 secs (9.9-12.6)
--- NOTE | 2017-11-14 21:18 | XRAY Preliminary Report ---
Exam: XR CHEST 2 VIEW X-RAY IMPRESSION: 1. Previous sternotomy. Stable cardiac enlargement, valve replacement and cardiac pacemaker. 2. No acute pulmonary process. [facility] SITE ID: [id number]
--- NOTE | 2017-11-14 21:25 | XRAY Report ---
EXAM: CHEST RADIOGRAPHY EXAM DATE: 11/14/2017 08:58 PM. CLINICAL HISTORY: Syncope. COMPARISON: 07/10/2018. TECHNIQUE: 2 views. FINDINGS: Lungs/Pleura: No focal opacities evident. No pleural effusion. No pneumothorax. Normal volumes. Mediastinum: Previous sternotomy. Mild cardiac enlargement. Previous valve replacement noted. Atherom atous plaques in the mid thoracic arch. Cardiac device and leads appear in expected position. Other: None. IMPRESSION: 1. Previous sternotomy. Stable cardiac enlargement, valve replacement and cardiac pacemaker. 2. No acute pulmonary process. [facility] Referring Provider Line: [phone] SITE ID: [id number]
[2017-11-14 22:48] VITALS: BP 114/68
== END 2017-11-14 23:05 | disposition home or self-care (01) ==
LOC: EDUNIT# → ED 19:08
DX: R55 Syncope and collapse (principal); I11.0 Hypertensive heart disease with heart failure; I50.9 Heart failure, unspecified; E11.9 Type 2 diabetes mellitus without complications; I25.10 Atherosclerotic heart disease of native coronary artery without angina pectoris; Z95.810 Presence of automatic (implantable) cardiac defibrillator; Z95.2 Presence of prosthetic heart valve; I48.91 Unspecified atrial fibrillation; I48.92 Unspecified atrial flutter; Z79.01 Long term (current) use of anticoagulants; Z79.82 Long term (current) use of aspirin
CPT/HCPCS: 36415; 71046; 80053; 83690; 84484; 85025; 85610; 85730; 93005; 99284

== ENCOUNTER 2017-11-17 09:45 | Outpatient (CLI) | payer MEDICARE | END 2017-11-17 09:46 | disposition home or self-care (01) | LOC: LAB.F 09:45 | PROVIDERS: ATTEND Internal Medicine | DX: I48.1 Persistent atrial fibrillation (principal); Z79.01 Long term (current) use of anticoagulants | CPT/HCPCS: 85610 ==

== ENCOUNTER 2017-11-28 15:05 | Outpatient (CLI) | payer MEDICARE ==
--- NOTE | 2017-11-28 16:50 | XRAY Report ---
EXAM: THORACIC SPINE RADIOGRAPHY EXAM DATE: 11/28/2017 04:09 PM. CLINICAL HISTORY: LOW BACK PAIN, NECK PAIN, THORACIC BACK PAIN. COMPARISON: Chest 11/14/2017. TECHNIQUE: 2 views. FINDINGS: Alignment: Normal. No spondylolisthesis or scoliosis. Bones: No fractures or bone lesions. Disks: Grossly maintained. Soft Tissues: Previous sternotomy noted. There is a left chest pacemaker defibrillator with leads in right ventricle and lead traversing through coronary sinus region. Prior cardiac valve replacement. IMPRESSION: No fracture or subluxation of thoracic spine. [facility] Referring Provider Line: [phone] SITE ID: [id number]
--- NOTE | 2017-11-28 17:02 | XRAY Report ---
EXAM: LUMBOSACRAL SPINE RADIOGRAPHY EXAM DATE: 11/28/2017 04:09 PM. CLINICAL HISTORY: Low back pain COMPARISONS: None. TECHNIQUE: 3 views. FINDINGS: Alignment: Grade 1 retrolisthesis of L1 on L2 measures 6 mm. Bones: Five cst-mby-[id number] lumbar vertebral bodies are present. No fractures. Moderate osteopenia is present. Disks: Severe disk height loss, endplate spurring, and periarticular sclerosis are present from L1-L3 . Facets: No degenerative changes. Sacroiliac Joints: Unremarkable. Soft Tissues: Arterial calcifications indicate atherosclerosis. IMPRESSION: 1. Grade 1 retrolisthesis of L1 on L2. 2. Severe degenerative disk change from L1-L3. [facility] Referring Provider Line: [phone] SITE ID: [id number]
--- NOTE | 2017-11-28 18:29 | XRAY Preliminary Report ---
Exam: XR CERVICAL SPINE COMPLETE IMPRESSION: 1. Multilevel mild to moderate degenerative changes, less than expected for age. 2. Pacer. [facility] SITE ID: [id number]
--- NOTE | 2017-11-28 18:34 | XRAY Report ---
EXAM: CERVICAL SPINE RADIOGRAPHY EXAM DATE: 11/28/2017 04:09 PM. CLINICAL HISTORY: Neck pain. COMPARISONS: None. TECHNIQUE: 7 views. FINDINGS: Alignment: Normal. No spondylolisthesis or scoliosis. Bones: The cervical vertebral bodies and posterior elements are well-visualized from the skull base t hrough C7-T1. No fractures or bone lesions. Disks: Narrowing as follows: Moderate C4-C5 with tiny osteophytes, moderate to marked C5-C6 with mode rate osteophytes, marked C6-C7 with moderate osteophytes. Facets: Mild degenerative changes throughout the cervical spine. Neural Foramina: Bony neural foraminal compromise as follows: Mild right and moderate left C4-C5, mod erate to marked right and mild left C6-C7. Soft Tissues: Sternotomy. Pacer. No prevertebral soft tissue swelling. The visualized lung apices are clear. IMPRESSION: 1. Multilevel mild to moderate degenerative changes, less than expected for age. 2. Pacer. [facility] Referring Provider Line: [phone] SITE ID: [id number]
== END 2017-11-28 15:06 | disposition home or self-care (01) ==
LOC: DI.S 15:05
PROVIDERS: ATTEND Internal Medicine
DX: M51.36 Other intervertebral disc degeneration, lumbar region (principal); M43.16 Spondylolisthesis, lumbar region; M47.892 Other spondylosis, cervical region; Z95.0 Presence of cardiac pacemaker
CPT/HCPCS: 72050; 72070; 72100

== ENCOUNTER 2017-12-01 09:13 | Outpatient (CLI) | payer MEDICARE | END 2017-12-01 09:14 | disposition home or self-care (01) | LOC: LAB.F 09:13 | PROVIDERS: ATTEND Internal Medicine | DX: I48.1 Persistent atrial fibrillation (principal); Z79.01 Long term (current) use of anticoagulants | CPT/HCPCS: 85610 ==

== ENCOUNTER 2017-12-15 08:48 | Outpatient (CLI) | payer MEDICARE | END 2017-12-15 08:49 | disposition home or self-care (01) | LOC: LAB.F 08:48 | PROVIDERS: ATTEND Internal Medicine | DX: I48.1 Persistent atrial fibrillation (principal); Z79.01 Long term (current) use of anticoagulants | CPT/HCPCS: 85610 ==

== ENCOUNTER 2018-01-23 07:44 | Outpatient (CLI) | payer MEDICARE ==
[2018-01-23 12:22] LABS: BUN - BLOOD UREA NITROGEN 29 mg/dL (6-20); CALCIUM 8.6 mg/dL (8.5-10.3); CARBON DIOXIDE - CO2 30 mmol/L (21-32); CHLORIDE 101 mmol/L (101-111); CHOL/HDL RATIO 3.8 (<5.0); CHOLESTEROL 133 mg/dL; CREATININE 1.5 mg/dL (0.6-1.2); DIGOXIN 0.3 ng/mL; GFR - MDRD 44 (>89); GLUCOSE 128 mg/dL (70-100); HDL CHOLESTEROL 35 mg/dL; LDL CHOLESTEROL,CALCULATED 78 mg/dL; LDL/HDL RATIO 2.2 (<3.6); SODIUM 138 mmol/L (135-145); VLDL CHOLESTEROL 20 mg/dL
[2018-01-23 12:42] LABS: CREATININE,URINE 50.7 mg/dL; MICROALBUM/CREATININE RATIO,UR 39.4 ug/mg (<30.0)
[2018-01-23 13:19] LABS: HB2 TOTAL 14.9 g/dL; HEMOGLOBIN A1C 0.65 g/dL; HEMOGLOBIN A1C % 6.1 % (4.6-6.2)
== END 2018-01-23 07:45 | disposition home or self-care (01) ==
LOC: LAB.F 07:44
PROVIDERS: ATTEND Internal Medicine
DX: I13.0 Hypertensive heart and chronic kidney disease with heart failure and stage 1 through stage 4 chronic kidney disease, or unspecified chronic kidney disease (principal); I50.23 Acute on chronic systolic (congestive) heart failure; N18.3 Chronic kidney disease, stage 3 (moderate); E11.22 Type 2 diabetes mellitus with diabetic chronic kidney disease; I48.91 Unspecified atrial fibrillation; I06.0 Rheumatic aortic stenosis; N25.81 Secondary hyperparathyroidism of renal origin; E78.5 Hyperlipidemia, unspecified; G47.37 Central sleep apnea in conditions classified elsewhere
CPT/HCPCS: 36415; 80048; 80061; 80162; 82043; 82570; 83036; 83721; 83970

== ENCOUNTER 2018-01-28 09:18 | Outpatient (CLI) | payer MEDICARE | END 2018-01-28 09:19 | disposition home or self-care (01) | LOC: LAB.F 09:18 | PROVIDERS: ATTEND Internal Medicine | DX: I48.1 Persistent atrial fibrillation (principal); Z79.01 Long term (current) use of anticoagulants | CPT/HCPCS: 85610 ==

== ENCOUNTER 2018-02-25 07:44 | Outpatient (CLI) | payer MEDICARE ==
[2018-02-25 12:31] LABS: ALBUMIN 3.5 g/dL (3.2-5.5); ALT ALANINE AMINOTRANSFERASE 24 IU/L (10-60); AST ASPARTATE AMINOTRANSFERASE 23 IU/L (10-42); BUN - BLOOD UREA NITROGEN 27 mg/dL (6-20); CALCIUM 8.6 mg/dL (8.5-10.3); CARBON DIOXIDE - CO2 30 mmol/L (21-32); CHLORIDE 104 mmol/L (101-111); CHOL/HDL RATIO 3.1 (<5.0); CHOLESTEROL 127 mg/dL; CK- CREATINE KINASE 81 IU/L (22-269); CREATININE 1.6 mg/dL (0.6-1.2); GFR - MDRD 41 (>89); GLUCOSE 107 mg/dL (70-100); HDL CHOLESTEROL 41 mg/dL; LDL CHOLESTEROL,CALCULATED 70 mg/dL; LDL CHOLESTEROL,DIRECT 76 mg/dL; LDL/HDL RATIO 1.7 (<3.6); PHOSPHORUS 3.1 mg/dL (2.5-4.6); SODIUM 139 mmol/L (135-145); VLDL CHOLESTEROL 16 mg/dL
== END 2018-02-25 07:45 | disposition home or self-care (01) ==
LOC: LAB.F 07:44
PROVIDERS: ATTEND Internal Medicine Cardiovascular Disease
DX: I50.22 Chronic systolic (congestive) heart failure (principal); E78.5 Hyperlipidemia, unspecified
CPT/HCPCS: 36415; 80061; 80069; 82550; 83721; 83880; 84450; 84460

== ENCOUNTER 2018-04-01 13:26 | Outpatient (CLI) | payer MEDICARE | END 2018-04-01 13:27 | disposition home or self-care (01) | LOC: LAB.F 13:26 | PROVIDERS: ATTEND Internal Medicine | DX: I48.1 Persistent atrial fibrillation (principal); Z79.01 Long term (current) use of anticoagulants | CPT/HCPCS: 85610 ==

== ENCOUNTER 2018-04-06 10:06 | Outpatient (CLI) | payer MEDICARE ==
[2018-04-06 18:08] LABS: HB2 TOTAL 14.7 g/dL; HEMOGLOBIN A1C 0.74 g/dL; HEMOGLOBIN A1C % 6.8 % (4.6-6.2)
== END 2018-04-06 10:07 | disposition home or self-care (01) ==
LOC: LAB.F 10:06
PROVIDERS: ATTEND Internal Medicine
DX: I50.23 Acute on chronic systolic (congestive) heart failure (principal); I10 Essential (primary) hypertension; E11.65 Type 2 diabetes mellitus with hyperglycemia; N25.81 Secondary hyperparathyroidism of renal origin; I06.0 Rheumatic aortic stenosis; E78.5 Hyperlipidemia, unspecified; N18.3 Chronic kidney disease, stage 3 (moderate); G47.37 Central sleep apnea in conditions classified elsewhere; I48.1 Persistent atrial fibrillation; Z79.01 Long term (current) use of anticoagulants
CPT/HCPCS: 36415; 83036; 85610

== ENCOUNTER 2018-04-09 09:46 | Outpatient (CLI) | payer MEDICARE | END 2018-04-09 09:47 | disposition home or self-care (01) | LOC: LAB.F 09:46 | PROVIDERS: ATTEND Internal Medicine | DX: I48.1 Persistent atrial fibrillation (principal); Z79.01 Long term (current) use of anticoagulants | CPT/HCPCS: 85610 ==

== ENCOUNTER 2018-04-15 14:30 | Outpatient (CLI) | payer MEDICARE | END 2018-04-15 14:31 | disposition home or self-care (01) | LOC: SC 14:30 | PROVIDERS: ATTEND Nurse Practitioner Family | DX: G47.31 Primary central sleep apnea (principal) | CPT/HCPCS: 99214; G0463; 99212 ==

== ENCOUNTER 2018-04-22 11:27 | Outpatient (CLI) | payer MEDICARE | END 2018-04-22 11:28 | disposition home or self-care (01) | LOC: LAB.F 11:27 | PROVIDERS: ATTEND Internal Medicine | DX: I48.91 Unspecified atrial fibrillation (principal); Z79.01 Long term (current) use of anticoagulants | CPT/HCPCS: 85610 ==

== ENCOUNTER 2018-05-18 13:15 | Outpatient (CLI) | payer MEDICARE | END 2018-05-18 13:16 | disposition home or self-care (01) | LOC: SC 13:15 | PROVIDERS: ATTEND Internal Medicine Pulmonary Disease | DX: Z53.9 Procedure and treatment not carried out, unspecified reason (principal) ==

== ENCOUNTER 2018-06-02 13:15 | Outpatient (CLI) | payer MEDICARE | END 2018-06-02 13:16 | disposition home or self-care (01) | LOC: SC 13:15 | PROVIDERS: ATTEND Internal Medicine Pulmonary Disease | DX: G47.31 Primary central sleep apnea (principal) | CPT/HCPCS: 99213; G0463; 99212 ==

== ENCOUNTER 2018-06-08 09:29 | Outpatient (CLI) | payer MEDICARE ==
[2018-06-08 18:05] LABS: HB2 TOTAL 13.8 g/dL; HEMOGLOBIN A1C 0.63 g/dL; HEMOGLOBIN A1C % 6.3 % (4.6-6.2)
== END 2018-06-08 09:30 | disposition home or self-care (01) ==
LOC: LAB.F 09:29
PROVIDERS: ATTEND Internal Medicine
DX: I48.1 Persistent atrial fibrillation (principal); Z79.01 Long term (current) use of anticoagulants; I50.23 Acute on chronic systolic (congestive) heart failure; I48.91 Unspecified atrial fibrillation; G47.37 Central sleep apnea in conditions classified elsewhere; E78.5 Hyperlipidemia, unspecified; I06.0 Rheumatic aortic stenosis; N25.81 Secondary hyperparathyroidism of renal origin; E11.22 Type 2 diabetes mellitus with diabetic chronic kidney disease; I13.0 Hypertensive heart and chronic kidney disease with heart failure and stage 1 through stage 4 chronic kidney disease, or unspecified chronic kidney disease; I50.9 Heart failure, unspecified; N18.3 Chronic kidney disease, stage 3 (moderate)
CPT/HCPCS: 36415; 83036; 85610

== ENCOUNTER 2018-06-15 07:31 | Outpatient (CLI) | payer MEDICARE | END 2018-06-15 07:32 | disposition home or self-care (01) | LOC: LAB.F 07:31 | PROVIDERS: ATTEND Internal Medicine | DX: I48.1 Persistent atrial fibrillation (principal); Z79.01 Long term (current) use of anticoagulants | CPT/HCPCS: 85610 ==

== ENCOUNTER 2018-06-22 07:26 | Outpatient (CLI) | payer MEDICARE | END 2018-06-22 07:27 | disposition home or self-care (01) | LOC: LAB.F 07:26 | PROVIDERS: ATTEND Internal Medicine | DX: I48.1 Persistent atrial fibrillation (principal); Z79.01 Long term (current) use of anticoagulants | CPT/HCPCS: 85610 ==

== ENCOUNTER 2018-07-03 09:41 | Outpatient (CLI) | payer MEDICARE | END 2018-07-03 09:42 | disposition home or self-care (01) | LOC: LAB.F 09:41 | PROVIDERS: ATTEND Internal Medicine | DX: R31.9 Hematuria, unspecified (principal) | CPT/HCPCS: 81001; 81003; 87086 ==

== ENCOUNTER 2018-07-04 10:33 | Outpatient (CLI) | payer MEDICARE ==
[2018-07-04 10:04] LABS: BILIRUBIN,URINE NEGATIVE (NEGATIVE); GLUCOSE, URINE (UA) NEGATIVE (NEGATIVE); KETONES,URINE (UA) NEGATIVE (NEGATIVE); LEUKOCYTE ESTERASE, URINE MODERATE (NEGATIVE); NITRITE,URINE NEGATIVE (NEGATIVE); OCCULT BLOOD,URINE SMALL (NEGATIVE); PH,URINE 6.5 PH (5.0-7.5); PROTEIN,URINE NEGATIVE (NEGATIVE); UROBILINOGEN,URINE 0.2 (NORMAL) E.U./dL (NORMAL)
[2018-07-04 10:10] LABS: CLARITY,URINE SL. CLOUDY (CLEAR)
[2018-07-04 10:29] LABS: RBC,URINE 0-5 /HPF (0-5); WBC CLUMPS,URINE PRESENT
[2018-07-04 10:30] LABS: BACTERIA,URINE Rare /HPF (None Seen); SQUAMOUS EPITHELIAL CELL,UR NONE SEEN (<= Few)
== END 2018-07-04 23:59 ==
LOC: LAB.R 10:33
PROVIDERS: ATTEND Internal Medicine
DX: R31.9 Hematuria, unspecified (principal)
CPT/HCPCS: 81001; 81003; 87077; 87086; 87181

== ENCOUNTER 2018-07-06 10:00 | Outpatient (CLI) | payer MEDICARE | END 2018-07-06 10:01 | disposition home or self-care (01) | LOC: LAB.F 10:00 | PROVIDERS: ATTEND Internal Medicine | DX: I48.1 Persistent atrial fibrillation (principal); Z79.01 Long term (current) use of anticoagulants | CPT/HCPCS: 85610 ==

== ENCOUNTER 2018-07-30 08:12 | Outpatient (CLI) | payer MEDICARE | END 2018-07-30 08:13 | disposition home or self-care (01) | LOC: LAB.F 08:12 | PROVIDERS: ATTEND Internal Medicine | DX: I48.1 Persistent atrial fibrillation (principal); Z79.01 Long term (current) use of anticoagulants | CPT/HCPCS: 85610 ==